=== PATIENT | female | born 1960 | race Caucasian/White ===

== ENCOUNTER 2017-11-08 09:35 | Day surgery (SDC) | payer OTHER ==
[~2017-11-08] VITALS: Ht 167.6 cm; Wt 104.3 kg
[~2017-11-08 09:35] MED LIST: ATEN25TA7 PO
[2017-11-08] MEDS ORDERED: fentaNYL 0.05 MG/ML VIAL ONE (13:24)
[2017-11-08] MEDS ORDERED: MIDAZOLAM 2 MG/2 ML VIAL ONE (13:24)
[2017-11-08] MEDS ORDERED: MIDAZOLAM 2 MG/2 ML VIAL IVP ONE ×2 (14:25→14:55)
== END 2017-11-08 15:05 | disposition home or self-care (01) ==
LOC: MDS 09:35 → MMU 09:37 → MDS 15:05
PROVIDERS: ATTEND Internal Medicine Gastroenterology
DX: K22.2 Esophageal obstruction (principal); K31.7 Polyp of stomach and duodenum; I10 Essential (primary) hypertension; K21.9 Gastro-esophageal reflux disease without esophagitis; E66.9 Obesity, unspecified; Z68.37 Body mass index [BMI] 37.0-37.9, adult; Z79.899 Other long term (current) drug therapy; Z88.0 Allergy status to penicillin; Z90.710 Acquired absence of both cervix and uterus; Z98.890 Other specified postprocedural states
CPT/HCPCS: 36415; 43239; 86677; J2250; J3010